=== PATIENT | male | born 1980 | race American Indian/Alaskan Native ===

== ENCOUNTER 2017-04-24 13:05 | Emergency (ER) | payer MEDICAID ==
[2017-04-24 13:17] VITALS: BP 138/94
[2017-04-24 13:57] LABS: Hemoglobin 17.5 gm/dl (11.8-15.2); Mean Corpuscular HGB Conc 34 % (32-34); Mean Corpuscular Hemoglobin 35 pg (28-32); Mean Corpuscular Volume 102 fl (84-94); Platelet Count 222 K/mm3 (140-440); Red Blood Count 4.98 M/mm3 (3.65-5.03); White Blood Count 7.4 K/mm3 (4.5-11.0)
[2017-04-24 14:01] LABS: Anion Gap 23 mmol/L; BUN/Creatinine Ratio 10; Blood Urea Nitrogen 8 mg/dL (9-20); Calcium 9.2 mg/dL (8.4-10.2); Carbon Dioxide 23 mmol/L (22-30); Chloride 96.8 mmol/L (98-107); Glucose 83 mg/dL (75-100); Sodium 139 mmol/L (137-145)
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
[2017-04-24 15:14] LABS: Urine Drugs of Abuse Note Disclamer
[2017-04-24 15:32] LABS: Bilirubin,Urine NEG (Negative); Blood,Urine NEG (Negative); Ketones,Urine NEG (Negative); Leukocyte Esterase,Urine NEG (Negative); Nitrite,Urine NEG (Negative); Protein,Urine <15 mg/dL mg/dL (Negative); Urobilinogen,Urine < 2.0 mg/dL (<2.0); WBC,Urine < 1.0 /HPF (0.0-6.0)
--- NOTE | 2017-04-24 16:28 | Cat Scan Report ---
FINAL REPORT PROCEDURE: CT HEAD/BRAIN WO CON TECHNIQUE: Computerized tomography of the head was performed without contrast material. HISTORY: dizziness/HA3 COMPARISON: No prior studies are available for comparison. FINDINGS: The visualized portions of the paranasal sinuses are clear. Mastoid air cells are clear. There is no calvarial fracture. There is no hydrocephalus. No acute intracranial hemorrhage or mass effect is seen. There is no evidence of acute CVA. IMPRESSION: No abnormalities are seen.
--- NOTE | 2017-04-24 16:32 | Cat Scan Report ---
FINAL REPORT PROCEDURE: CT CERVICAL SPINE WO CON TECHNIQUE: Computerized tomography of the cervical spine was performed from the skull base to T1 without contrast material. HISTORY: radiculopathy, numbness RUE COMPARISON: No prior studies are available for comparison. FINDINGS: There is slight straightening of cervical lordosis. Large anterior osteophytes are seen at C5-6. No bony central canal or neural foraminal stenosis is seen. There is no subluxation. No prevertebral edema or C-spine fracture is seen. Mild central disc bulge is seen at C5-6. IMPRESSION: Mild central disc bulge at C5-6 causes little central canal narrowing.
== END 2017-04-25 01:50 | disposition left against medical advice (07) ==
LOC: ED 13:05
DX: M79.641 Pain in right hand (principal); Z53.21 Procedure and treatment not carried out due to patient leaving prior to being seen by health care provider
CPT/HCPCS: 36415; 70450; 72125; 80048; 80307; 81001; 85027; G0480; 80320

== ENCOUNTER 2018-10-19 12:55 | Emergency (ER) | payer MEDICAID ==
[2018-10-19 13:55] VITALS: BP 125/73
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
--- NOTE | 2018-10-19 15:26 | Emergency Department Report ---
ED General Adult HPI - General Chief complaint: Skin Rash Stated complaint: RASH/BACK/KNEE PAIN Time Seen by Provider: 10/19/18 13:52 Source: patient Mode of arrival: Ambulatory Limitations: No Limitations - History of Present Illness Initial comments: Respiratory presents with mild rash in the upper arms bilaterally for the past 2 days. He has moderate right knee pain swelling without injury for the past 2 weeks -: Gradual, days(s) (2), week(s) (2) Location: left, right, upper extremity, lower extremity Quality: aching Consistency: constant Improves with: none Worsens with: none - Related Data Previous Rx's Medication Instructions Recorded Last Taken Type Hydrocortisone 1% [Hydrocortisone 1 applicatio TP TID 7 Days #1 tube 10/19/18 Unknown Rx 1% CREAM] Prednisone [predniSONE 10 mg 10 mg PO .TAPER #1 tab.ds.pk 10/19/18 Unknown Rx (6-Day Pack, 21 Tabs)] Allergies Allergy/AdvReac Type Severity Reaction Status Date / Time No Known Allergies Allergy Verified 10/19/18 12:57 ED Review of Systems ROS: Stated complaint: RASH/BACK/KNEE PAIN Other details as noted in HPI Constitutional: denies: fever, malaise Musculoskeletal: arthralgia Skin: rash, lesions ED Past Medical Hx - Past Medical History Previous Medical History?: Yes Hx Hypertension: Yes Additional medical history: elevated cholesterol - Surgical History Past Surgical History?: No - Social History Smoking Status: Current Every Day Smoker Substance Use Type: Alcohol - Medications Home Medications: Home Medications Medication Instructions Recorded Confirmed Last Taken Type Hydrocortisone 1% [Hydrocortisone 1 applicatio TP TID 7 Days #1 tube 10/19/18 Unknown Rx 1% CREAM] Prednisone [predniSONE 10 mg 10 mg PO .TAPER #1 tab.ds.pk 10/19/18 Unknown Rx (6-Day Pack, 21 Tabs)] ED Physical Exam - General Limitations: No Limitations General appearance: alert, in no apparent distress - Head Head exam: Present: atraumatic, normocephalic - Eye Eye exam: Absent: scleral icterus - Respiratory Respiratory exam: Absent: respiratory distress - Extremities Exam Extremities exam: Present: other (right knee hard large mass at the medial aspect full range of motion) - Skin Skin exam: Present: rash (left upper extremity faint papular rash at the forearm mild redness upper arm) ED Course Vital Signs 10/19/18 13:53 Temperature 98.3 F Pulse Rate 85 Respiratory 18 Rate Blood Pressure 125/73 O2 Sat by Pulse 97 Oximetry ED Medical Decision Making - Medical Decision Making 1. Allergic contact dermatitis prescribed prednisone and hydrocortisone cream 2. Bony mass at the right knee concern for tumor referred to orthopedic surgeon Critical care attestation.: If time is entered above; I have spent that time in minutes in the direct care of this critically ill patient, excluding procedure time. ED Disposition Clinical Impression: Allergic contact dermatitis, Knee mass Disposition: TO HOME OR SELFCARE Is pt being admited?: No Does the pt Need Aspirin: No Condition: Stable Instructions: Contact Dermatitis (ED) Additional Instructions: Please have your knee evaluated by Dr. Leyva as soon as possible. Prescriptions: Hydrocortisone 1% [Hydrocortisone 1% CREAM] 1 applicatio TP TID 7 Days #1 tube Prednisone [predniSONE 10 mg (6-Day Pack, 21 Tabs)] 10 mg PO .TAPER #1 tab.ds.pk Referrals: BERTRAND LEYVA MD [Staff Physician] - [facility]
== END 2018-10-19 16:12 | disposition home or self-care (01) ==
LOC: ED 12:55
DX: L23.9 Allergic contact dermatitis, unspecified cause (principal); M79.89 Other specified soft tissue disorders; I10 Essential (primary) hypertension; F17.200 Nicotine dependence, unspecified, uncomplicated
CPT/HCPCS: 99282

== ENCOUNTER 2019-07-10 00:59 | Emergency (ER) | payer MEDICAID ==
[2019-07-10 01:35] VITALS: BP 148/96
[2019-07-10] MEDS ORDERED: ACETAMINOPHEN 325 MG TAB PO ONE (01:40)
[2019-07-10] MEDS ORDERED: ACETAMINOPHEN 325 MG TAB ONE (01:41)
[2019-07-10] MEDS ORDERED: HYDROcodone/ACETAMINOPHEN 5-325 MG TAB PO ONE (02:42)
--- NOTE | 2019-07-10 03:04 | Emergency Department Report ---
ED ENT HPI - General Chief complaint: Dental/Oral Stated complaint: MOUTH PAIN Time Seen by Provider: 07/10/19 02:42 Source: patient, family Mode of arrival: Ambulatory Limitations: No Limitations - History of Present Illness Initial comments: Mr. Hart is a 38-year-old -Spanish male who presents with dental pain x2 days. 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 Tooth pain is 8/10, there is no fevers or chills no throat or ear pain patient is tolerating p.o. intake. Symptoms are exacerbated by eating and hot and cold stimuli. Symptoms are relieved by nothing tried. MD complaint: tooth pain Onset/Timin -: days(s) Location: tooth # (18) Severity: moderate Severity scale (0 -10): 7 Quality: aching Improves with: none Worsens with: eating Context- Dental: history of dental caries, poor dental care Associated Symptoms: gum swelling, toothache. denies: fever, cough, pain with swallowing, sore throat, tinnitus, hearing loss, discharge from ear, rhinorrhea - Related Data Previous Rx's Medication Instructions Recorded Last Taken Type Hydrocortisone 1% [Hydrocortisone 1 applicatio TP TID 7 Days #1 tube 10/19/18 Unknown Rx 1% CREAM] Prednisone [predniSONE 10 mg 10 mg PO .TAPER #1 tab.ds.pk 10/19/18 Unknown Rx (6-Day Pack, 21 Tabs)] Amoxicillin [Trimox CAP] 500 mg PO Q8H #30 capsule 07/10/19 Unknown Rx Chlorhexidine Mouthwash [Peridex] 15 ml MM BID #1 bottle 07/10/19 Unknown Rx traMADoL [Ultram] 50 mg PO Q6HR PRN #12 tablet 07/10/19 Unknown Rx Allergies Allergy/AdvReac Type Severity Reaction Status Date / Time No Known Allergies Allergy Verified 10/19/18 12:57 ED Dental HPI - General Chief complaint: Dental/Oral Stated complaint: MOUTH PAIN Time Seen by Provider: 07/10/19 02:42 Source: patient, family Mode of arrival: Ambulatory Limitations: No Limitations - Related Data Previous Rx's Medication Instructions Recorded Last Taken Type Hydrocortisone 1% [Hydrocortisone 1 applicatio TP TID 7 Days #1 tube 10/19/18 Unknown Rx 1% CREAM] Prednisone [predniSONE 10 mg 10 mg PO .TAPER #1 tab.ds.pk 10/19/18 Unknown Rx (6-Day Pack, 21 Tabs)] Amoxicillin [Trimox CAP] 500 mg PO Q8H #30 capsule 07/10/19 Unknown Rx Chlorhexidine Mouthwash [Peridex] 15 ml MM BID #1 bottle 07/10/19 Unknown Rx traMADoL [Ultram] 50 mg PO Q6HR PRN #12 tablet 07/10/19 Unknown Rx Allergies Allergy/AdvReac Type Severity Reaction Status Date / Time No Known Allergies Allergy Verified 10/19/18 12:57 ED Review of Systems ROS: Stated complaint: MOUTH PAIN Other details as noted in HPI Constitutional: denies: chills, fever Eyes: denies: eye pain, eye discharge, vision change ENT: dental pain Respiratory: denies: cough, shortness of breath, wheezing Cardiovascular: denies: chest pain, palpitations Endocrine: no symptoms reported Gastrointestinal: denies: abdominal pain, nausea, diarrhea Genitourinary: denies: urgency, dysuria Musculoskeletal: as per HPI Skin: denies: rash, lesions Neurological: denies: headache, weakness, paresthesias Psychiatric: denies: anxiety, depression Hematological/Lymphatic: denies: easy bleeding, easy bruising ED Past Medical Hx - Past Medical History Previous Medical History?: Yes Hx Hypertension: Yes Additional medical history: elevated cholesterol - Surgical History Past Surgical History?: No Hx Coronary Stent: No Hx Open Heart Surgery: No Hx Pacemaker: No Hx Internal Defibrillator: No Hx Cholecystectomy: No Hx Appendectomy: No Hx Breast Surgery: No - Social History Smoking Status: Current Every Day Smoker Substance Use Type: Alcohol - Medications Home Medications: Home Medications Medication Instructions Recorded Confirmed Last Taken Type Hydrocortisone 1% [Hydrocortisone 1 applicatio TP TID 7 Days #1 tube 10/19/18 Unknown Rx 1% CREAM] Prednisone [predniSONE 10 mg 10 mg PO .TAPER #1 tab.ds.pk 10/19/18 Unknown Rx (6-Day Pack, 21 Tabs)] Amoxicillin [Trimox CAP] 500 mg PO Q8H #30 capsule 07/10/19 Unknown Rx Chlorhexidine Mouthwash [Peridex] 15 ml MM BID #1 bottle 07/10/19 Unknown Rx traMADoL [Ultram] 50 mg PO Q6HR PRN #12 tablet 07/10/19 Unknown Rx ED Physical Exam - General Limitations: No Limitations General appearance: alert, in no apparent distress - Head Head exam: Present: atraumatic, normocephalic - Eye Eye exam: Present: normal appearance, PERRL, EOMI Pupils: Present: normal accommodation - ENT ENT exam: Present: mucous membranes moist - Expanded ENT Exam Expanded Teeth exam: Present: dental caries (18), fractured tooth # (18), dental tenderness # (18) Throat exam: Positive: other (uvula midline no exudate no stridor no wheezing ). Negative: tonsillar erythema, tonsillomegaly, tonsillar exudate, R peritonsillar mass, L peritonsillar mass - Neck Neck exam: Present: normal inspection, full ROM. Absent: tenderness, meningismus, lymphadenopathy, thyromegaly - Expanded Neck Exam Expanded Neck exam: Absent: tenderness, midline deformity, anterior neck swelling - Respiratory Respiratory exam: Present: normal lung sounds bilaterally. Absent: respiratory distress, wheezes, stridor, chest wall tenderness - Cardiovascular Cardiovascular Exam: Present: regular rate, normal rhythm, normal heart sounds. Absent: systolic murmur, diastolic murmur, rubs, gallop - GI/Abdominal GI/Abdominal exam: Present: soft, normal bowel sounds. Absent: tenderness, bruit, hernia - Rectal Rectal exam: Present: deferred - Extremities Exam Extremities exam: Present: normal inspection, full ROM. Absent: tenderness - Back Exam Back exam: Present: normal inspection, full ROM. Absent: tenderness - Neurological Exam Neurological exam: Present: alert, oriented X3, CN II-XII intact, normal gait - Psychiatric Psychiatric exam: Present: normal affect, normal mood - Skin Skin exam: Present: warm, dry, intact, normal color. Absent: rash ED Course Vital Signs 07/10/19 01:10 Temperature 98.6 F Pulse Rate 106 H Respiratory 18 Rate Blood Pressure 148/96 O2 Sat by Pulse 97 Oximetry ED Medical Decision Making - Medical Decision Making This is infected dental carries , no abscess, plan: amoxcillin , peridex, ultram, follow up with your dentist as scheduled in 2 days. Pt verbalized agreement and understanding of discharge plan. Critical care attestation.: If time is entered above; I have spent that time in minutes in the direct care of this critically ill patient, excluding procedure time. ED Disposition Clinical Impression: Infected dental caries Disposition: DC-01 TO HOME OR SELFCARE Is pt being admited?: No Does the pt Need Aspirin: No Condition: Stable Instructions: Dental Caries (ED) Prescriptions: Chlorhexidine Mouthwash [Peridex] 15 ml MM BID #1 bottle Amoxicillin [Trimox CAP] 500 mg PO Q8H #30 capsule traMADoL [Ultram] 50 mg PO Q6HR PRN #12 tablet PRN Reason: Pain Referrals: KETAN TSAI MD [Primary Care Provider] - 3-5 Days Forms: Work/School Release Form(ED) Time of Disposition: 03:08
== END 2019-07-10 03:17 | disposition home or self-care (01) ==
LOC: ED 00:59
DX: K02.9 Dental caries, unspecified (principal); I10 Essential (primary) hypertension; F17.200 Nicotine dependence, unspecified, uncomplicated; E78.00 Pure hypercholesterolemia, unspecified; Z79.899 Other long term (current) drug therapy
CPT/HCPCS: 99282